=== PATIENT | female | born 1970 | race American Indian/Alaskan Native ===

== ENCOUNTER 2020-05-17 14:51 | Outpatient (CLI) | payer BC ==
--- NOTE | 2020-05-18 13:28 | Mammography Report ---
BILATERAL DIAGNOSTIC MAMMOGRAM INDICATION: Patient reports history of outside left breast stereotactic biopsy for which follow-up ev aluation was recommended. COMPARISON: 04/16/2016, 02/25/2015, 12/31/2014, 11/17/2013. FINDINGS: There is scattered fibroglandular breast tissue bilaterally. A biopsy marker within the lef t upper inner breast is noted at site of reported outside benign stereotactic biopsy. The calcificati ons in this region show no significant change when accounting for differences in technique. A left me dial breast asymmetry seen best on the cc view at middle depth appears new. A right medial breast asy mmetry appears stable. CAD was utilized. IMPRESSION: Left breast asymmetry for which additional mammographic views (spot CC, rolled CCs, full ML) are evelyn mmended for further evaluation with possible subsequent targeted ultrasound. BIRADS 0-Incomplete: Needs additional imaging evaluation NOTE: WE WILL RECALL THE PATIENT FOR THIS ADDITIONAL EVALUATION. Signer Name: Jayden Chao MD Signed: 05/18/2020 1:24 PM Workstation Name: [id number]
== END 2020-05-17 14:52 | disposition home or self-care (01) ==
LOC: SPVWC 14:51
PROVIDERS: ATTEND Internal Medicine
DX: R92.8 Other abnormal and inconclusive findings on diagnostic imaging of breast (principal)
CPT/HCPCS: 77066

== ENCOUNTER 2021-05-24 08:53 | Outpatient (CLI) | payer BC ==
--- NOTE | 2021-05-25 11:40 | Ultrasound Report ---
BILATERAL DIGITAL DIAGNOSTIC MAMMOGRAM WITH CAD , 05/24/2021 BILATERAL LIMITED BREAST ULTRASOUND CLINICAL INFORMATION / INDICATION: Patient states she is experiencing bilateral palpable breast lumps .. TECHNIQUE: Digital bilateral mammographic imaging was performed. Spot compression views were obtained . Limited ultrasound was performed. This examination was interpreted with the benefit of Computer-Aid ed Detection (CAD) analysis. COMPARISON: Prior mammogram 05/17/2020, 04/16/2016 FINDINGS: Breast Density: There are scattered areas of fibroglandular density. MAMMOGRAPHIC FINDINGS: No dominant mass, suspicious calcifications, or architectural distortion in ei ther breast. There are scattered benign-appearing nodules bilaterally. Although the pattern has nickerson ed slightly especially in the left breast, the pattern is still that of changing fibrocystic disease. Left breast biopsy clip. ULTRASOUND FINDINGS: Targeted ultrasound evaluation was performed of the area of interest. Right breast several small simple cysts are seen throughout the superior and upper inner right breast , corresponding to the general area of palpable abnormality. No cyst is greater than 1 cm. No solid m ass identified. Sonographic evaluation of the superior left breast show several small simple cysts, the largest of wh ich measures 8 mm. No solid mass identified. IMPRESSION: No mammographic or sonographic evidence of malignancy. Bilateral small simple cysts are n oted. Clinical correlation is recommended for bilateral palpable lumps. Follow up recommendation: Routine yearly BI-RADS Category 2: Benign. A "normal" or negative report should not discourage follow up or biopsy of a clinically significant f inding. A written summary of these findings will be mailed to the patient. The patient will be entered into a mammography reporting system which will generate a reminder letter for the patient's next appointmen t at the appropriate interval. According to the [employer], yearly mammograms are recommended starting at age 40 and continuing as long as a woman is in good health. Breast MRI is recommended for women with an john roximately 20-25% or greater lifetime risk of breast cancer, including women with a strong family his tory of breast or ovarian cancer and women who have been treated for Hodgkin's disease. Signer Name: Kristel Mccoy MD Signed: 05/25/2021 11:35 AM Workstation Name: [id number]
== END 2021-05-24 08:54 | disposition home or self-care (01) ==
LOC: MAMMO 08:53
PROVIDERS: ATTEND Internal Medicine
DX: N60.02 Solitary cyst of left breast (principal); N60.01 Solitary cyst of right breast
CPT/HCPCS: 77066